=== PATIENT | female | born 1990 | race Caucasian/White ===

== ENCOUNTER 2023-12-14 10:08 | Outpatient (AMB) | payer BC, SELFPAY ==
--- NOTE | 2023-12-14 10:15 | A.OFFVIS_ITS ---
Intake Vital Signs 12/14/23 10:19 Height 5 ft 8 in Weight 207 lb 3.752 oz BMI 31.5 BP 124/52 L Blood Pressure Location Lt brachial Position Sitting Pulse 81 Intake Visit Reasons: Mast. Cell activation, Unspecified Intake Note: Sanju presents in the office as a new patient for mast cell activation disease. CC: She states that all her symptoms have been there for ever. She states she has extreme food sensitivities. She has never seen if she has allergies for anything. Allergies No Known Allergies Allergy (Verified 12/14/23 10:19) HPI Mast. Cell activation, Unspecified HPI Details 33yr old patient being seen for assessme nt for abdominal sx been having sx for many years since young age she has painful bloating no matter what she eats she has hemorrhoids for long time she has altered diarrhea and constipation she has a lot of stress, she is in grad school studying psychotherapy she has been avoiding gluten and dairy since her 20's she has pain around umbilical area and RLQ--constant, on and off for a decade feels like an ache, worse with food, can be any type she denies nausea or vomiting she gets hives she ordered DOA supplement she gets occ palpitations and she has double joints no nsaid PMH: hashimotos thyroiditis, PSH: wisdom teeth SH:no drug use, non drinking, non smoker, student --product management internship FH: DM and CHF< ROS: Constitutional : No Weight loss, No Fever, No Chills ENT/Mouth : No sore throat, No Rhinorrhea Eyes: No Swelling, No Redness Cardiovascular : No Chest Pain, No SOB, No Edema Respiratory : No Cough, No Sputum, No Wheezing Gastrointestinal : see HPI Genitourinary : NO Dysuria, No Urinary Frequency, No Hematuria, No Urgency Musculoskeletal : No joint pain, No Myalgias, No Joint Swelling Skin : No Skin Lesions, + rash Neuro : No Weakness, No Numbness, No Dizziness, No Headache Psych : No Anxiety/Panic, No Depression Heme/Lymph: No Bruising, No Lymphadenopathy Endocrine : No Polyuria, No Polydipsia All other systems reviewed and are negative. EXAM: GENERAL: The patient is well developed and nontoxic. VITAL SIGNS:see workflow HEENT: Nonicteric sclerae, PERRLA, EOMI. Oropharynx clear. Moist mucous membranes. Conjunctivae appear well perfused. No thyroid mass. CHEST: Chest wall is nontender. HEART: Regular rate and rhythm without murmurs. LUNGS: Clear to auscultation bilaterally. ABDOMEN: Soft, positive bowel sounds, nontender, no organomegaly.no flank tenderness SKIN: No rash, no excessive bruising, petechiae, or purpura. NEUROLOGIC: Cranial nerves II-XII intact without motor/sensory deficit. A/P: 1/ Assorted sx, many possibilities incl SIBO, MCAS, BAM< CHO intolerance, IBD, other enteropathy, she may also have CTD as she has v flexible joints Plan: 1/ labs as below incl RAST< stool lactof artemio, esr, crp, celiac serology 2/ CTe 3/ might need egd and colo 4/ see if H breath test covered [facility] Surgical History (Updated 12/14/23 @ 10:19 by BIRGIT Ortega) History of wisdom tooth extraction, class I edentulism Family History (Updated 12/14/23 @ 10:20 by BIRGIT Ortega) Paternal Grandmother Cancer Maternal Grandfather Diabetes Physical Exam Vital Signs: Last Vital Signs Pulse 81 12/14/23 10:19 BP 124/52 L 12/14/23 10:19 BMI result Body Mass Index 31.5 Assessment & Plan Assessment & Plan (1) Periumbilical abdominal pain: Code(s): R10.33 - Periumbilical pain Plan: 1/ Assorted sx, many possibilities incl SIBO, MCAS, BAM< CHO intolerance, IBD, other enteropathy, she may also have CTD as she has v flexible joints Plan: 1/ labs as below incl RAST< stool lactoferrin, esr, crp, celiac serology, check nutrients r/o malabsorption 2/ CTe 3/ might need egd and colo 4/ see if H breath test covered (2) Altered bowel habits: Code(s): R19.4 - Change in bowel habit Plan: 1/ Assorted sx, many possibilities incl SIBO, MCAS, BAM< CHO intolerance, IBD, other enteropathy, she may also have CTD as she has v flexible joints Plan: 1/ labs as below incl RAST< stool lactoferrin, esr, crp, celiac serology 2/ CTe 3/ might need egd and colo 4/ see if H breath test covered Orders: Orders Vitamin B12 and Folate Today R10.33 - Periumbilical pain, R19.4 - Change in bowel habit Vitamin B3 (Niacin) Today R10.33 - Periumbilical pain, R19.4 - Change in bowel habit Vitamin C Today R10.33 - Periumbilical pain, R19.4 - Change in bowel habit Vitamin E Today R10.33 - Periumbilical pain, R19.4 - Change in bowel habit Zinc Today R10.33 - Periumbilical pain, R19.4 - Change in bowel habit Transglutaminase IgA Today R10.33 - Periumbilical pain, R19.4 - Change in bowel habit Lactoferrin, Fecal, Quant. Today K51.50 - Left sided colitis without complications, R10.33 - Periumbilical pain, R19.4 - Change in bowel habit Complete Blood Count Auto Diff Today R10.33 - Periumbilical pain, R19.4 - Change in bowel habit Fecal Fat Qualitative Today R10.33 - Periumbilical pain, R19.4 - Change in bowel habit Immunoglobulin E Today R10.33 - Periumbilical pain, R19.4 - Change in bowel habit Rast Allergen Today R10.33 - Periumbilical pain, R19.4 - Change in bowel habit Erythrocyte Sedimentation Rate Today R10.33 - Periumbilical pain, R19.4 - Change in bowel habit N-Methylhistamine 24Hr Today R10.33 - Periumbilical pain, R19.4 - Change in bowel habit Vitamin A Today R10.33 - Periumbilical pain, R19.4 - Change in bowel habit Vitamin B1 Today R10.33 - Periumbilical pain, R19.4 - Change in bowel habit Vitamin B5 (Pantothenic Acid) Today R10.33 - Periumbilical pain, R19.4 - Change in bowel habit Vitamin B6 Today R10.33 - Periumbilical pain, R19.4 - Change in bowel habit Vitamin D 25-OH Total Today R10.33 - Periumbilical pain, R19.4 - Change in bowel habit Vitamin K1 Today R10.33 - Periumbilical pain, R19.4 - Change in bowel habit Transglutaminase Ab IgG Today G89.29 - Other chronic pain, R10.33 - Periumbilical pain, R19.4 - Change in bowel habit C Reactive Protein Today R10.33 - Periumbilical pain, R19.4 - Change in bowel habit Comprehensive Met. Panel Today K75.81 - Nonalcoholic steatohepatitis (LIRA), R10.33 - Periumbilical pain, R19.4 - Change in bowel habit Ferritin Today R10.33 - Periumbilical pain, R19.4 - Change in bowel habit Histamine Plasma Today R10.33 - Periumbilical pain, R19.4 - Change in bowel habit Tryptase Today R10.33 - Periumbilical pain, R19.4 - Change in bowel habit, R19.7 - Diarrhea, unspecified CT enterography Today R10.33 - Periumbilical pain, R19.4 - Change in bowel habit Immunoglobulins,IgG IgA IgM Today R10.33 - Periumbilical pain, R19.4 - Change in bowel habit Prostaglandin D2 Random Urine Today R10.33 - Periumbilical pain, R19.4 - Change in bowel habit Coding Level of Care Code New Pt Level 4 (73199) Diagnoses Periumbilical abdominal pain R10.33 Altered bowel habits R19.4
[2023-12-14 10:19] VITALS: BP 124/52; PULSE 81; BMI 31.5
== END 2023-12-14 11:31 | disposition home or self-care (01) ==
PROVIDERS: PCP Nurse Practitioner Adult Health; Referring Provider Nurse Practitioner Adult Health; Visit Provider Internal Medicine Gastroenterology
DX: R10.33 Periumbilical pain (principal); R19.4 Change in bowel habit
CPT/HCPCS: 99204

== ENCOUNTER → 2023-12-14 10:08 | Outpatient (BNVA) | payer BC, SELFPAY | PROVIDERS: PCP Nurse Practitioner Adult Health; Visit Provider Internal Medicine Gastroenterology ==

== ENCOUNTER 2024-01-31 14:35 | Outpatient (REF) | payer BC, SELFPAY ==
--- NOTE | ~2024-01-31 | CT_ITS ---
EXAMINATION: CT ENTEROGRAPHY ABDOMEN AND PELVIS WITH CONTRAST CLINICAL INFORMATION: Periumbilical pain COMPARISON: None available. TECHNIQUE: Study performed with oral VoLumen (1350 mL) and 480 mL of water to distend the abdomen. The patient was injected with 85 mL Omnipaque 350 intravenous contrast which was administered without adverse effect. Coronal and sagittal reformatted images were obtained at the technologist's workstation. This CT examination was performed using dose optimization techniques as appropriate, variously including the following: *Automated exposure control *Adjustment of mA and/or kV according to patient size (this includes techniques or standardized protocols for targeted exams where dose is matched to indication/reason for exam; i.e. extremities or head) *Use of iterative reconstruction technique DLP: 889 mGy-cm FINDINGS: ROUTE SERVICE REPRESENTATIVE: Nonobstructive bowel pattern. LUNG BASES: Lung bases are clear. Nonenlarged heart. No pericardial effusion. GASTROINTESTINAL FINDINGS: Stomach: Well-distended and normal in appearance. Small intestine: Satisfactorily distended and normal in appearance. Large intestine: Well-distended and normal in appearance. No perirectal changes demonstrated. The appendix is not identified with certainty. Additional findings: No abnormal enhancement of the vasa recta or significant mesenteric or retroperitoneal lymphadenopathy is seen. No abdominal abscess or fistulous tract demonstrated. ABDOMINAL AND PELVIC CT FINDINGS: Liver, gallbladder, biliary tract: Unremarkable Pancreas: Unremarkable Spleen: Unremarkable Adrenal glands and kidneys: Unremarkable Ureters and bladder: Unremarkable. Lymphovascular structures: Unremarkable Pelvic organs: No pathology recognized. OSSEOUS STRUCTURES: Unremarkable. CT/CT enterography IMPRESSION: Unremarkable examination.
[2024-01-31] MEDS: iohexoL 350 MG/ML 100 ML INFUS..BTL IV (16:31)
[2024-01-31] MEDS: Sorbitol/Mannit/Xanth Imaging 500 ML LIQUID 1500 ML PO (16:33)
== END 2024-01-31 14:36 | disposition home or self-care (01) ==
LOC: HO.CT 14:35
PROVIDERS: Visit Provider Internal Medicine Gastroenterology
DX: R10.33 Periumbilical pain (principal); R19.4 Change in bowel habit
CPT/HCPCS: 74177; Q9967